=== PATIENT | male | born 1990 | race Caucasian/White ===

== ENCOUNTER 2017-06-10 06:36 | Emergency (ER) | payer BC, MEDICAID ==
[~2017-06-10] VITALS: Ht 170.2 cm; Wt 73.7 kg
[~2017-06-10 06:36] MED LIST: ALBU18HF2 IH; IBUP-1984 PO; NAPR-1154 PO; PRED20TA PO
[2017-06-10] MEDS ORDERED: ibuprofen tablet 400 MG TABLET PO ONE (07:10)
[2017-06-10 07:23] VITALS: BP 138/95
== END 2017-06-10 07:21 | disposition home or self-care (01) ==
LOC: ER 06:37
DX: S93.692A Other sprain of left foot, initial encounter (principal); Z79.899 Other long term (current) drug therapy; X58.XXXA Exposure to other specified factors, initial encounter; Y93.39 Activity, other involving climbing, rappelling and jumping off; Y92.89 Other specified places as the place of occurrence of the external cause; Y99.8 Other external cause status
CPT/HCPCS: 73630; 99284